=== PATIENT | male | born 1940 | race Caucasian/White ===

== ENCOUNTER → 2017-08-19 14:17 | Outpatient (CLI) | payer MEDICARE, OTHER, SELFPAY ==
--- NOTE | 2017-08-19 14:12 | EKG12_ITS ---
Test Reason : QT EVAL Blood Pressure : / mmHG Vent. Rate : 084 BPM Atrial Rate : 084 BPM P-R Int : 172 ms QRS Dur : 118 ms QT Int : 394 ms P-R-T Axes : 071 -13 016 degrees QTc Int : 465 ms Sinus rhythm with occasional Premature ventricular complexes and Premature atrial complexes Right bundle branch block Inferior infarct , age undetermined Abnormal ECG Confirmed by TABATHA PARADA, ROMA ([id number]), editor in chief JAVON BARNES ([id number] on 08/24/2017 3:18:19 PM Referred By: Kelly Kwong Confirmed By:ROMA MAYS MD
== END ==
PROVIDERS: Family Provider Family Medicine; PCP Family Medicine; Visit Provider Nurse Practitioner Acute Care
DX: I47.1 Supraventricular tachycardia (principal)
CPT/HCPCS: 93005

== ENCOUNTER → 2017-08-29 10:12 | Outpatient (CLI) | payer MEDICARE, OTHER, SELFPAY ==
[2017-08-29 12:18] LABS: Absolute Lymphocyte Count 1.71 X10^3/ul (0.83-4.51); Absolute Neutrophil Count 3.9 X10^3/uL (2.0-7.7); Basophil# 0.01 X10^3/uL; Basophil% 0.2 % (0-1); Eosinophil# 0.12 X10^3/uL; Eosinophils% 1.9 % (0-5); Hematocrit 46.6 % (40-54); Hemoglobin 15.4 g/dl (13.0-16.5); Lymphocyte # 1.71 X10^3/ul (4.0); Lymphocyte % 27.5 % (19-41); Mean Corpuscular Hgb 31.7 pg (27.0-32.0); Mean Corpuscular Volume 95.9 fL (80-94); Mean Platelet Vol. 9.7 fl (6.2-12.0); Monocyte# 0.47 X10^3/uL; Monocyte% 7.6 % (0-10); Neutrophil # 3.87 X10^3/uL (2.7-7.7); Neutrophil % 62.3 % (47-70); Platelet Count 131 K/mm3 (150-450); RBC Distribution Width CV 12.8 % (11.6-14.6); RBC Distribution Width SD 44.2 fl (35.1-43.9); Red Blood Count 4.86 M/mm3 (4.6-6.2); White Blood Count 6.2 K/mm3 (4.4-11.0)
[2017-08-29 12:20] LABS: POSITIVE COUNT NO; POSITIVE DIFFERENTIAL NO; POSITIVE MORPHOLOGY NO
[2017-08-29 12:37] LABS: AST(SGOT) 26 U/L (15-37); Alanine Aminotransfer ALT/SGPT 32 U/L (16-61); Albumin, Serum 3.5 g/dL (3.2-5.0); Alkaline Phosphatase 90 U/L (45-117); Anion Gap 10 (5-15); BUN 18 mg/dL (7-18); BUN/Creat Ratio 17.3 RATIO (10-20); Calcium,Total 8.6 mg/dL (8.5-10.1); Chloride 103 mmol/L (98-107); Creatinine, Serum 1.04 mg/dL (0.70-1.30); EST Glomerular Filtration Rate 74 mL/min (>60); Est Glom Filt Rate - Afr Amer 89 mL/min (>60); Ferritin 57 ng/mL (26-388); Globulin 3.6 g/dL (2.2-4.2); Glucose 126 mg/dL (74-106); Iron 88 ug/dL (65-175); Potassium 3.8 mmol/L (3.5-5.1); Protein, Total 7.1 g/dL (6.4-8.2); Sodium Level 144 mmol/L (136-145); T4 Free Direct 1.04 ng/dL (0.76-1.46); Thyroid Stim Hormone (TSH) 1.61 uIU/mL (0.358-3.74)
== END ==
PROVIDERS: Visit Provider Family Medicine
DX: R73.01 Impaired fasting glucose (principal); I10 Essential (primary) hypertension; D47.3 Essential (hemorrhagic) thrombocythemia; D64.9 Anemia, unspecified
CPT/HCPCS: 36415; 80053; 82728; 83540; 84439; 84443; 85025

== ENCOUNTER → 2018-04-18 09:45 | Outpatient (CLI) | payer MEDICARE, OTHER, SELFPAY ==
[2018-01-24 08:32] VITALS: BMI 27.9
--- NOTE | 2018-04-18 14:19 | PFT ---
INTRODUCTION: The patient is a 77-year-old male that presents for pulmonary function studies secondary to a diagnosis of COPD. Respiratory therapy reports good patient effort. Bronchodilators were used during testing. INTERPRETATION: Forced expiration spirometry demonstrates the presence of a moderately severe large airways obstructive ventilatory defect. There was a significant response to aerosolized bronchodilators noted. Spirograms are of good quality and do not plateau indicating slow emptying of the lungs. Body plethysmography was performed and reveals an elevated RV to 144% of predicted, indicative of underlying air trapping. Diffusing capacity by single breath CO remains within normal limits at 82% of predicted. When compared to previous pulmonary function studies dated March 2017 there has been a significant increase in the patient's residual volume. IMPRESSION: These pulmonary function studies demonstrate the presence of a partially reversible moderately severe large airways obstructive ventilatory defect with associated air trapping. Diffusing capacity remains within normal limits. There have been changes since March 2017 as noted above.
--- NOTE | 2018-04-18 14:22 | PFT_ITS ---
INTRODUCTION: The patient is a 77-year-old male that presents for pulmonary function studies secondary to a diagnosis of COPD. Respiratory therapy reports good patient effort. Bronchodilators were used during testing. INTERPRETATION: Forced expiration spirometry demonstrates the presence of a moderately severe large airways obstructive ventilatory defect. There was a significant response to aerosolized bronchodilators noted. Spirograms are of good quality and do not plateau indicating slow emptying of the lungs. Body plethysmography was performed and reveals an elevated RV to 144% of predicted, indicative of underlying air trapping. Diffusing capacity by single breath CO remains within normal limits at 82% of predicted. When compared to previous pulmonary function studies dated March 2017 there has been a significant increase in the patient's residual volume. IMPRESSION: These pulmonary function studies demonstrate the presence of a partially revers ible moderately severe large airways obstructive ventilatory defect with associated air trapping. Diffusing capacity remains within normal limits. There have been changes since March 2017 as noted above.
== END ==
PROVIDERS: Family Provider Family Medicine; PCP Family Medicine; Referring Provider Nurse Practitioner Acute Care; Visit Provider Nurse Practitioner Acute Care
DX: J44.9 Chronic obstructive pulmonary disease, unspecified (principal)
CPT/HCPCS: 94060; 94726; 94729

== ENCOUNTER → 2018-04-19 10:47 | Outpatient (CLI) | payer MEDICARE, OTHER, SELFPAY ==
[2018-01-24 08:32] VITALS: BMI 27.9
[2018-04-19 12:52] VITALS: PULSE 106; PULSE 110; PULSE 111; PULSE 116; PULSE 117; PULSE 90; PULSE 94; O2SAT 90; O2SAT 91; O2SAT 92; O2SAT 94; O2SAT 96; O2SAT 97
--- NOTE | 2018-04-20 10:51 | PCM.PSN.6M ---
PSN 6 Minute Walk Test - 6 Minute Walk Test 6 Minute Walk Test: 6 Minute Walk Test PSN:6-Minute Walk Test Start: 04/19/18 12:52 Freq: Status: Active Protocol: RESP.6MINW Document 04/19/18 12:52 STEW (Rec: 04/19/18 12:55 STEW [id number]) 6 Minute Walk Test Date Performed 04/19/18 Time Performed 11:00 Height 5 ft 6 in Weight: 175 lb Weight in Pounds 175.[address]: [facility] [place] Assistive device used: None Pre-test Oxygen Delivery Method Room Air Pulse Ox (%) 96 Pulse Rate (60-100 beats/min) 90 Dyspnea Suzette Scale (0-10) 0 Exertion Suzette Scale (6-20) 6 1st minute Oxygen Delivery Method Room Air Pulse Ox (%) 94 Pulse Rate (60-100 beats/min) 106 H 2nd minute Oxygen Delivery Method Room Air Pulse Ox (%) 92 Pulse Rate (60-100 beats/min) 110 H 3rd minute Oxygen Delivery Method Room Air Pulse Ox (%) 92 Pulse Rate (60-100 beats/min) 111 H 4th minute Oxygen Delivery Method Room Air Pulse Ox (%) 91 Pulse Rate (60-100 beats/min) 110 H 5th minute Oxygen Delivery Method Room Air Pulse Ox (%) 90 Pulse Rate (60-100 beats/min) 116 H 6th minute Oxygen Delivery Method Room Air Pulse Ox (%) 92 Pulse Rate (60-100 beats/min) 117 H Dyspnea Suzette Scale (0-10) 3 Exertion Suzette Scale (6-20) 13 Post-test Oxygen Delivery Method Room Air Pulse Ox (%) 97 Pulse Rate (60-100 beats/min) 94 Full Laps Walked 17 Partial Lap, Number of Tiles Walked 15 Total Distance Walked (ft) 1018 - Interpretation Interpretation: The patient ambulated 1018 feet over the course of 6 minutes beginning on room air without assistive devices or breaks. Pretesting oxygen saturation was noted to be 96% on room air. With ambulation, the [place] oxygen saturation was 90%. This represents a significant exertional oxygen desaturation, consistent with a pulmonary limitation to exercise tolerance. - Recommendations Recommendations: There is no indication for the use of supplemental oxygen at this time. However, close interval follow-up is recommended, given the degree of oxygen desaturation noted during this study.
== END ==
PROVIDERS: Family Provider Family Medicine; PCP Family Medicine; Referring Provider Nurse Practitioner Acute Care; Visit Provider Nurse Practitioner Acute Care
DX: J44.9 Chronic obstructive pulmonary disease, unspecified (principal)
CPT/HCPCS: 94618

== ENCOUNTER → 2018-08-29 14:15 | Outpatient (CLI) | payer MEDICARE, OTHER, SELFPAY ==
[2018-05-01 13:20] VITALS: BMI 27.9
[2018-08-29 17:21] LABS: Absolute Lymphocyte Count 1.38 X10^3/ul (0.83-4.51); Absolute Neutrophil Count 3.2 X10^3/uL (2.0-7.7); Basophil# 0.01 X10^3/uL; Basophil% 0.2 % (0-1); Eosinophil# 0.05 X10^3/uL; Hemoglobin 15.7 g/dl (13.0-16.5); Lymphocyte # 1.38 X10^3/ul (4.0); Lymphocyte % 27.8 % (19-41); Mean Corp Hgb Conc 34.1 g/gl (32-36); Mean Corpuscular Volume 93.7 fL (80-94); Mean Platelet Vol. 9.7 fl (6.2-12.0); Monocyte# 0.33 X10^3/uL; Monocyte% 6.7 % (0-10); Neutrophil # 3.17 X10^3/uL (2.7-7.7); Neutrophil % 63.9 % (47-70); Platelet Count 125 K/mm3 (150-450); RBC Distribution Width CV 12.3 % (11.6-14.6); RBC Distribution Width SD 41.3 fl (35.1-43.9); Red Blood Count 4.91 M/mm3 (4.6-6.2)
[2018-08-29 17:30] LABS: POSITIVE COUNT NO; POSITIVE DIFFERENTIAL NO; POSITIVE MORPHOLOGY NO
[2018-08-29 17:59] LABS: AST(SGOT) 21 U/L (15-37); Alanine Aminotransfer ALT/SGPT 26 U/L (16-61); Albumin, Serum 3.5 g/dL (3.2-5.0); Alkaline Phosphatase 88 U/L (45-117); Anion Gap 9 (5-15); BUN 15 mg/dL (7-18); BUN/Creat Ratio 15.7 RATIO (10-20); Calcium,Total 8.5 mg/dL (8.5-10.1); Chloride 104 mmol/L (98-107); Creatinine, Serum 0.96 mg/dL (0.70-1.30); EST Glomerular Filtration Rate 81 mL/min (>60); Est Glom Filt Rate - Afr Amer 98 mL/min (>60); Globulin 3.4 g/dL (2.2-4.2); Glucose 125 mg/dL (74-106); Potassium 3.6 mmol/L (3.5-5.1); Protein, Total 6.9 g/dL (6.4-8.2); Sodium Level 142 mmol/L (136-145); Thyroid Stim Hormone (TSH) 0.72 uIU/mL (0.358-3.74)
== END ==
PROVIDERS: Family Provider Family Medicine; PCP Family Medicine; Visit Provider Family Medicine
DX: I10 Essential (primary) hypertension (principal); D47.3 Essential (hemorrhagic) thrombocythemia; G25.0 Essential tremor; I47.1 Supraventricular tachycardia
CPT/HCPCS: 36415; 80053; 83735; 84443; 85025

== ENCOUNTER → 2019-03-12 09:24 | Outpatient (CLI) | payer MEDICARE, OTHER, SELFPAY ==
[2018-12-28 09:42] VITALS: BMI 28.0
[2019-03-12 12:23] LABS: Absolute Lymphocyte Count 1.41 X10^3/uL (0.83-4.51); Absolute Neutrophil Count 2.1 X10^3/uL (2.0-7.7); Basophil# 0.03 X10^3/uL; Basophil% 0.7 % (0-1); Eosinophil# 0.13 X10^3/uL; Eosinophils% 3.2 % (0-5); Hematocrit 47.8 % (40-54); Hemoglobin 15.7 g/dL (13.0-16.5); Lymphocyte # 1.41 X10^3/ul (4.0); Lymphocyte % 34.6 % (19-41); Mean Corp Hgb Conc 32.8 g/dL (32-36); Mean Corpuscular Hgb 31.3 pg (27.0-32.0); Mean Corpuscular Volume 95.2 fL (80-94); Mean Platelet Vol. 9.8 fl (6.2-12.0); Monocyte# 0.37 X10^3/uL; Monocyte% 9.1 % (0-10); NRBC Flagged by Analyzer 0 % (0-5); Neutrophil # 2.11 X10^3/uL (2.7-7.7); Neutrophil % 51.9 % (47-70); Platelet Count 138 K/mm3 (150-450); RBC Distribution Width SD 41.8 fl (35.1-43.9); Red Blood Count 5.02 M/mm3 (4.6-6.2); White Blood Count 4.1 K/mm3 (4.4-11.0)
[2019-03-12 12:42] LABS: Anion Gap 3 (5-15); BUN 14 mg/dL (7-18); BUN/Creat Ratio 14.6 RATIO (10-20); Calcium,Total 8.4 mg/dL (8.5-10.1); Chloride 102 mmol/L (98-107); Creatinine, Serum 0.96 mg/dL (0.70-1.30); EST Glomerular Filtration Rate 80 mL/min (>60); Est Glom Filt Rate - Afr Amer 97 mL/min (>60); Glucose 115 mg/dL (74-106); Magnesium 1.9 mg/dL (1.6-2.6); Potassium 3.8 mmol/L (3.5-5.1); Sodium Level 138 mmol/L (136-145)
== END ==
PROVIDERS: Family Provider Family Medicine; PCP Family Medicine; Visit Provider Family Medicine
DX: I10 Essential (primary) hypertension (principal); D47.3 Essential (hemorrhagic) thrombocythemia; R25.2 Cramp and spasm
CPT/HCPCS: 36415; 80048; 83735; 85025

== ENCOUNTER → 2019-04-09 07:36 | Outpatient (CLI) | payer MEDICARE, OTHER, SELFPAY ==
[2018-10-23 08:34] VITALS: BMI 28.1
[2018-12-28 09:42] VITALS: BMI 28.0
--- NOTE | 2019-04-09 14:09 | PFTCOMP_ITS ---
COMPLETE PULMONARY FUNCTION TEST INTERPRETATION Brief HPI: Patient is a 78 year old male, currently under the care of myself, who presents to [facility] for complete pulmonary function tests secondary to diagnosis of COPD. Respiratory therapist reports good effort and reproducible results. Interpretation: Forced expiration spirometry shows a moderate large airways obstructive ventilatory defect with an FEV1 of 62% predicted. There is no significant bronchodilator response by strict ATS criteria. Spirograms are of good quality and plateau slowly, indicating slowly emptying areas of the lungs. The respiratory flow volume loop shows decreased expiratory flow rates at all lung volumes consistent with airway obstruction. Lung volumes by body plethysmography show an elevated total lung capacity at 7.65 L, 141% predicted. FRC and RV are elevated out of proportion. Lung volume measurements are consistent with hyperinflation and air-trapping. Diffusion capacity by carbon monoxide is normal at 77% predicted. The airway resistance is normal. Compared to previous pulmonary function tests from 04/18/2018, there is been some improvement in FEV1 by 12%, but also significant worsening in air trapping with hyperinflation. Impression: Irreversible moderate large airways obstructive ventilatory defect with some changes compared to previous testing
== END ==
PROVIDERS: Family Provider Family Medicine; PCP Family Medicine; Referring Provider Nurse Practitioner Acute Care; Visit Provider Nurse Practitioner Acute Care
DX: J44.9 Chronic obstructive pulmonary disease, unspecified (principal)
CPT/HCPCS: 94060; 94726; 94729

== ENCOUNTER → 2019-08-15 09:19 | Outpatient (CLI) | payer MEDICARE, OTHER, SELFPAY ==
[2019-08-07 09:18] VITALS: BMI 26.9
[2019-08-15 10:58] LABS: AST(SGOT) 22 U/L (15-37); Alanine Aminotransfer ALT/SGPT 27 U/L (16-61); Albumin, Serum 3.4 g/dL (3.2-5.0); Alkaline Phosphatase 97 U/L (45-117); Bilirubin, Direct 0.17 mg/dL (0.00-0.30); Cholesterol 144 mg/dL (200); Globulin 3.6 g/dL (2.2-4.2); High Density Lipoprotein 48 mg/dL; Triglycerides 118 mg/dL; Very Low Density Lipoprotein 24 mg/dL (5-40)
== END ==
PROVIDERS: PCP Family Medicine; Referring Provider Internal Medicine Cardiovascular Disease; Visit Provider Internal Medicine Cardiovascular Disease
DX: E78.5 Hyperlipidemia, unspecified (principal); R07.89 Other chest pain
CPT/HCPCS: 36415; 80061; 80076

== ENCOUNTER → 2019-08-20 10:14 | Outpatient (CLI) | payer MEDICARE, OTHER, SELFPAY ==
[2019-08-07 09:18] VITALS: BMI 26.9
--- NOTE | 2019-08-20 10:15 | STEWCON_ITS ---
Reason For Study: Dyspnea On Exertion Stress Results Protocol: [facility] Protocol WITH DEFINITY Maximum Predicted HR: 141 bpm Target HR: 120 bpm % Maximum Predicted HR: 94 % DurationHeart Rate Stage (mm:ss) (bpm) BP Comment Baseline 75 112/70No Chest Pain; 6 ML Diluted Definity [facility] Protocol Stage I 3:00 123 132/68No Chest Pain; Mod Dyspnea River Protocol Stage II 1:30 133 146/70No Chest Pain; Mod Dyspnea; Knee Pain Recovery 88 114/68No Chest Pain; No Dyspnea Stress Duration: 4:30 mm:ss Maximum Stress HR: 133 bpm METS: 7 Baseline Echocardiogram Findings Stress Echo Wall motion Data Resting WM Intermediate WM Stress WM Interpretation Summary Exercise stress echo with and without Definity enhancement. 78-year-old man with a history of coronary artery disease, previous angioplasty and stenting. Stress protocol: Resting EKG demonstrates normal sinus rhythm with a rate of 78 bpm normal intervals are noted right bundle branch block is present blood pressure 112/70 mmHg. The patient exercised according to the regular River protocol for total duration of 4 minutes and 30 seconds maximum heart rate attained was 1 and 34 bpm which was 95% of maximum practice heart rate the maximum workload was 7 metabolic equivalents. Patient maintained sinus rhythm with a right bundle branch block pattern. Occasional premature ventricular complexes were noted there was one episode of ventricular couplet activity noted. These were asymptomatic. The peak blood pressure was 146/70 mmHg. At rest and during exercise there were no ST or T wave changes noted to suggest ischemia the test was terminated due to target heart rate attainment. Stress echocardiogram. Stress and resting echocardiographic images were obtained. The resting echocardiogram performed with Definity enhancement demonstrated an ejection fraction of approximately 55%. At peak exercise there was thickening of all [place] reduction of the ventricular cavity size and peaking of ejection fraction of 65%. No obvious wall motion abnormalities were noted. Conclusion: Normal exercise stress echo with Definity enhancement at a moderate workload. No clinical angina noted. Occasional premature ventricular complexes present. Ordering Physician: Loi Davis Referring Physician: Rian Ash Performed By: Shantanu Conklin RCS
== END ==
PROVIDERS: PCP Family Medicine; Referring Provider Internal Medicine Cardiovascular Disease; Visit Provider Internal Medicine Cardiovascular Disease
DX: R06.02 Shortness of breath (principal)
CPT/HCPCS: 93017; 93350; Q9957; A4216; C8928

== ENCOUNTER → 2019-12-19 08:37 | Outpatient (CLI) | payer MEDICARE, OTHER, SELFPAY ==
[2019-10-17 10:09] VITALS: BMI 27.2
[2019-12-19 10:10] LABS: Absolute Lymphocyte Count 1.35 X10^3/uL (0.83-4.51); Absolute Neutrophil Count 2.8 X10^3/uL (2.0-7.7); Basophil# 0.02 X10^3/uL; Basophil% 0.4 % (0-1); Eosinophil# 0.15 X10^3/uL; Eosinophils% 3.2 % (0-5); Hematocrit 50.1 % (40-54); Hemoglobin 16.4 g/dL (13.0-16.5); Lymphocyte # 1.35 X10^3/ul (4.0); Lymphocyte % 28.5 % (19-41); Mean Corp Hgb Conc 32.7 g/dL (32-36); Mean Corpuscular Hgb 32.5 pg (27.0-32.0); Mean Corpuscular Volume 99.2 fL (80-94); Mean Platelet Vol. 9.6 fl (6.2-12.0); Monocyte# 0.42 X10^3/uL; Monocyte% 8.9 % (0-10); NRBC Flagged by Analyzer 0 % (0-5); Neutrophil # 2.77 X10^3/uL (2.7-7.7); Neutrophil % 58.6 % (47-70); Platelet Count 134 K/mm3 (150-450); RBC Distribution Width CV 12.1 % (11.6-14.6); RBC Distribution Width SD 44.3 fl (35.1-43.9); Red Blood Count 5.05 M/mm3 (4.6-6.2); White Blood Count 4.7 K/mm3 (4.4-11.0)
[2019-12-19 11:13] LABS: Anion Gap 2 (5-15); BUN 16 mg/dL (7-18); BUN/Creat Ratio 18.7 RATIO (10-20); Calcium,Total 8.6 mg/dL (8.5-10.1); Chloride 101 mmol/L (98-107); Creatinine, Serum 0.86 mg/dL (0.70-1.30); EST Glomerular Filtration Rate 91 mL/min (>60); Est Glom Filt Rate - Afr Amer 111 mL/min (>60); Glucose 105 mg/dL (74-106); Potassium 3.9 mmol/L (3.5-5.1); Sodium Level 138 mmol/L (136-145)
== END ==
PROVIDERS: PCP Family Medicine; Referring Provider Family Medicine; Visit Provider Family Medicine
DX: I10 Essential (primary) hypertension (principal); D47.3 Essential (hemorrhagic) thrombocythemia
CPT/HCPCS: 36415; 80048; 85025

== ENCOUNTER → 2020-02-14 08:19 | Outpatient (CLI) | payer MEDICARE, OTHER, SELFPAY ==
[2019-10-17 10:09] VITALS: BMI 27.2
[2020-02-14 09:27] LABS: AST(SGOT) 18 U/L (15-37); Alanine Aminotransfer ALT/SGPT 28 U/L (16-61); Albumin, Serum 3.6 g/dL (3.2-5.0); Alkaline Phosphatase 80 U/L (45-117); Bilirubin, Direct 0.17 mg/dL (0.00-0.30); Cholesterol 148 mg/dL (200); Globulin 3.4 g/dL (2.2-4.2); High Density Lipoprotein 52 mg/dL; Triglycerides 101 mg/dL; Very Low Density Lipoprotein 20 mg/dL (5-40)
== END ==
PROVIDERS: PCP Family Medicine; Referring Provider Internal Medicine Cardiovascular Disease; Visit Provider Internal Medicine Cardiovascular Disease
DX: E78.00 Pure hypercholesterolemia, unspecified (principal)
CPT/HCPCS: 36415; 80061; 80076

== ENCOUNTER → 2020-04-08 09:45 | Outpatient (CLI) | payer MEDICARE, OTHER, SELFPAY ==
[2019-10-17 10:09] VITALS: BMI 27.2
--- NOTE | 2020-04-09 05:50 | PFTCOMP_ITS ---
COMPLETE PULMONARY FUNCTION TEST INTERPRETATION Brief HPI: Patient is an 79 year old male, currently under the care of [my self Dr. Flores], who presents to [facility] for complete pulmonary function tests secondary to diagnosis of COPD. Respiratory therapist reports good effort and reproducible results. Interpretation: Forced expiration spirometry shows a moderately severe large airways obstructive ventilatory defect with an FEV1 of 58% predicted. There is no significant br onchodilator response by strict ATS criteria. Spirograms are of good quality and plateau [slowly, indicating slowly emptying areas of the lungs]. The respiratory flow volume loop shows [decreased expiratory flow rates at all lung volumes consistent with airway obstruction]. Lung volumes by body plethysmography show an elevated total lung capacity at 6.65 L, 129% predicted. [FRC and RV are elevated out of proportion.] Lung volume measurements are consistent with [hyperinflation and] air-trapping. Diffusion capacity by carbon monoxide is preserved at 88% predicted. The airway resistance is elevated. [Compared to previous pulmonary function tests from] 04/09/2019, there is been a significant reduction in FEV1 by 21%. Impression: Irreversible moderately severe large airways obstructive ventilatory defect resulting in air trapping with hyperinflation, with worsening over the last year.
== END ==
PROVIDERS: PCP Family Medicine; Referring Provider Nurse Practitioner Acute Care; Visit Provider Nurse Practitioner Acute Care
DX: J44.9 Chronic obstructive pulmonary disease, unspecified (principal)
CPT/HCPCS: 94060; 94726; 94729

== ENCOUNTER → 2020-04-10 12:18 | Outpatient (CLI) | payer MEDICARE, OTHER, SELFPAY ==
[2019-10-17 10:09] VITALS: BMI 27.2
[2020-04-10 12:00] VITALS: PULSE 102; PULSE 103; PULSE 105; PULSE 109; PULSE 110; PULSE 113; PULSE 90; O2SAT 91; O2SAT 92; O2SAT 94; O2SAT 96; O2SAT 99
--- NOTE | 2020-04-10 14:43 | PCM.PSN.6M ---
PSN 6 Minute Walk Test - 6 Minute Walk Test 6 Minute Walk Test: 6 Minute Walk Test PSN:6-Minute Walk Test Start: 04/10/20 12:36 Freq: Status: Active Protocol: RESP.6MINW Document 04/10/20 12:00 (Rec: 04/10/20 12:39 [id number]) 6 Minute Walk Test Date Performed 04/10/20 Time Performed 12:30 Height 5 ft 5 in Weight: 70.307 kg Weight in Pounds 155.[address]: Kelly Kwong MATERIALS MANAGEMENT CLERK FIO2 (% Oxygen) 21 Assistive device used: None Pre-test Oxygen Delivery Method Room Air Pulse Ox (%) 99 Pulse Rate (60-100 beats/min) 90 Dyspnea Suzette Scale (0-10) 0 Exertion Suzette Scale (6-20) 6 1st minute Oxygen Delivery Method Room Air Pulse Ox (%) 94 Pulse Rate (60-100 beats/min) 102 H 2nd minute Oxygen Delivery Method Room Air Pulse Ox (%) 92 Pulse Rate (60-100 beats/min) 105 H 3rd minute Oxygen Delivery Method Room Air Pulse Ox (%) 94 Pulse Rate (60-100 beats/min) 113 H Number of Rests Taken 1 4th minute Oxygen Delivery Method Room Air Pulse Ox (%) 91 Pulse Rate (60-100 beats/min) 109 H 5th minute Oxygen Delivery Method Room Air Pulse Ox (%) 94 Pulse Rate (60-100 beats/min) 110 H 6th minute Oxygen Delivery Method Room Air Pulse Ox (%) 92 Pulse Rate (60-100 beats/min) 103 H Post-test Oxygen Delivery Method Room Air Pulse Ox (%) 96 Pulse Rate (60-100 beats/min) 102 H Dyspnea Suzette Scale (0-10) 1 Exertion Suzette Scale (6-20) 13 Full Laps Walked 14 Partial Lap, Number of Tiles Walked 54 Total Distance Walked (ft) 880 - Interpretation Interpretation: The patient was able to ambulate 880 feet over the course of 6 minutes on room air with no assistive devices and one break. The patient did have significant desaturation from a baseline of 99% to as low as 91%. Patient also had an element of tachycardia 113 bpm. These findings are consistent with a respiratory limitation exercise tolerance. - Recommendations Recommendations: The patient requires no supplemental oxygen at this time. However, patient will need to be followed closely given level of desaturation.
== END ==
PROVIDERS: PCP Family Medicine; Referring Provider Nurse Practitioner Acute Care; Visit Provider Nurse Practitioner Acute Care
DX: J44.9 Chronic obstructive pulmonary disease, unspecified (principal)
CPT/HCPCS: 94618

== ENCOUNTER → 2020-08-15 08:11 | Outpatient (CLI) | payer MEDICARE, OTHER, SELFPAY ==
[2020-05-08 13:01] VITALS: BMI 25.4
[2020-08-15 09:39] LABS: Absolute Lymphocyte Count 1.77 X10^3/uL (0.83-4.51); Absolute Neutrophil Count 3.3 X10^3/uL (2.0-7.7); Basophil# 0.03 X10^3/uL; Basophil% 0.5 % (0-1); Eosinophil# 0.18 X10^3/uL; Eosinophils% 3.2 % (0-5); Hematocrit 49.7 % (40-54); Hemoglobin 16.2 g/dL (13.0-16.5); Lymphocyte # 1.77 X10^3/ul (0.83-4.51); Lymphocyte % 31.2 % (19-41); Mean Corp Hgb Conc 32.6 g/dL (32-36); Mean Corpuscular Hgb 32.6 pg (27.0-32.0); Mean Platelet Vol. 9.6 fl (6.2-12.0); Monocyte# 0.41 X10^3/uL; Monocyte% 7.2 % (0-10); NRBC Flagged by Analyzer 0 % (0-5); Neutrophil # 3.26 X10^3/uL (2.7-7.7); Neutrophil % 57.5 % (47-70); Platelet Count 129 K/mm3 (150-450); RBC Distribution Width CV 11.9 % (11.6-14.6); Red Blood Count 4.97 M/mm3 (4.6-6.2); White Blood Count 5.7 K/mm3 (4.4-11.0)
[2020-08-15 10:02] LABS: Hemoglobin A1c 6.1 % (3.8-5.6)
[2020-08-15 10:22] LABS: AST(SGOT) 21 U/L (15-37); Alanine Aminotransfer ALT/SGPT 23 U/L (16-61); Albumin, Serum 3.4 g/dL (3.2-5.0); Alkaline Phosphatase 101 U/L (45-117); Anion Gap 5 (5-15); BUN 17 mg/dL (7-18); BUN/Creat Ratio 19.7 RATIO (10-20); Bilirubin, Direct 0.14 mg/dL (0.00-0.30); Calcium,Total 8.6 mg/dL (8.5-10.1); Chloride 103 mmol/L (98-107); Cholesterol 132 mg/dL (200); Creatinine, Serum 0.86 mg/dL (0.70-1.30); EST Glomerular Filtration Rate 90 mL/min (>60); Est Glom Filt Rate - Afr Amer 109 mL/min (>60); Globulin 3.5 g/dL (2.2-4.2); Glucose 109 mg/dL (74-106); High Density Lipoprotein 46 mg/dL; Protein, Total 6.9 g/dL (6.4-8.2); Sodium Level 142 mmol/L (136-145); Thyroid Stim Hormone (TSH) 1.53 uIU/mL (0.358-3.74); Triglycerides 121 mg/dL; Very Low Density Lipoprotein 24 mg/dL (5-40)
== END ==
PROVIDERS: PCP Family Medicine; Referring Provider Internal Medicine Cardiovascular Disease; Visit Provider Internal Medicine Cardiovascular Disease
DX: R73.01 Impaired fasting glucose (principal); D47.3 Essential (hemorrhagic) thrombocythemia; I10 Essential (primary) hypertension; E78.5 Hyperlipidemia, unspecified
CPT/HCPCS: 36415; 80048; 80061; 80076; 83036; 84443; 85025

== ENCOUNTER 2021-03-30 11:54 | Outpatient (CLI) | payer MEDICARE, OTHER, SELFPAY | END 2021-03-30 23:59 | disposition short-term general hospital (02) | LOC: LABSPEC 11:56 | PROVIDERS: PCP Family Medicine; Visit Provider Family Medicine | DX: U07.1 COVID-19 (principal) | CPT/HCPCS: 87635; U0003 ==

== ENCOUNTER → 2021-10-06 | Outpatient (CLI) | payer MEDICARE, OTHER, SELFPAY ==
--- NOTE | 2021-10-07 05:37 | PFTCOMP_ITS ---
COMPLETE PULMONARY FUNCTION TEST INTERPRETATION Brief HPI: Patient is an 80-year-old male, currently under the care of myself, who presents to [facility] for complete pulmonary function tests secondary to diagnosis of COPD. Respiratory therapist reports good effort and reproducible results. Interpretation: Forced expiration spirometry shows a moderately severe large airways obstructive ventilatory defect with an FEV1 of 52% predicted. There is a significant bronchodilator response in FVC by strict ATS criteria. Spirograms are of good quality and plateau slowly, indicating slowly emptying areas of the lungs. The respiratory flow volume loop shows decreased expiratory flow rates at all lung volumes consistent with airway obstruction. Lung volumes by body plethysmography show an elevated total lung capacity at 7.82 L, 145% predicted. FRC and RV are elevated out of proportion. Lung volume measurements are consistent with hyperinflation and air-trapping. Diffusion capacity by carbon monoxide is normal at 75% predicted. The airway resistance is elevated. Compared to previous pulmonary function tests from 04/08/2020, there has been some worsening in air trapping with hyperinflation and decreased DLCO. Impression: Partially reversible moderately severe large airways obstructive ventilatory defect resulting in air trapping with hyperinflation. There has been some worsening compared to previous study
== END | disposition home or self-care (01) ==
LOC: PSN 09:18
PROVIDERS: PCP Family Medicine; Referring Provider Internal Medicine Critical Care Medicine; Visit Provider Internal Medicine Critical Care Medicine
DX: J44.9 Chronic obstructive pulmonary disease, unspecified (principal)
CPT/HCPCS: 94060; 94726; 94729

== ENCOUNTER → 2021-10-08 | Outpatient (CLI) | payer MEDICARE, OTHER, SELFPAY ==
[2021-10-08 11:28] VITALS: PULSE 102; PULSE 104; PULSE 105; PULSE 70; PULSE 81; PULSE 88; PULSE 99; O2SAT 92; O2SAT 93; O2SAT 95; O2SAT 96
--- NOTE | 2021-10-09 05:47 | PCM.PSN.6M ---
PSN 6 Minute Walk Test 6 Minute Walk Test 6 Minute Walk Test: 6 Minute Walk Test PSN:6-Minute Walk Test Start: 10/08/21 11:28 Freq: Status: Active Protocol: RESP.6MINW Document 10/08/21 11:28 STEW (Rec: 10/08/21 11:30 STEW [id number]) 6 Minute Walk Test Date Performed 10/08/21 Time Performed 11:15 Height 5 ft 6 in Weight: 66.678 kg Weight in Pounds 147.[address]: River [place] Assistive device used: None Pre-test Oxygen Delivery Method Room Air Pulse Ox (%) 95 Pulse Rate (60-100 beats/min) 81 Dyspnea Suzette Scale (0-10) 0 Exertion Suzette Scale (6-20) 6 1st minute Oxygen Delivery Method Room Air Pulse Ox (%) 95 Pulse Rate (60-100 beats/min) 88 2nd minute Oxygen Delivery Method Room Air Pulse Ox (%) 93 Pulse Rate (60-100 beats/min) 99 3rd minute Oxygen Delivery Method Room Air Pulse Ox (%) 93 Pulse Rate (60-100 beats/min) 102 H 4th minute Oxygen Delivery Method Room Air Pulse Ox (%) 92 Pulse Rate (60-100 beats/min) 105 H 5th minute Oxygen Delivery Method Room Air Pulse Ox (%) 92 Pulse Rate (60-100 beats/min) 104 H 6th minute Oxygen Delivery Method Room Air Pulse Ox (%) 92 Pulse Rate (60-100 beats/min) 105 H Dyspnea Suzette Scale (0-10) 2 Exertion Suzette Scale (6-20) 14 Post-test Oxygen Delivery Method Room Air Pulse Ox (%) 96 Pulse Rate (60-100 beats/min) 70 Full Laps Walked 15 Partial Lap, Number of Tiles Walked 35 Total Distance Walked (ft) 920 Interpretation Interpretation: The patient was able to travel 920 feet over the course of 6 minutes on room air with no assistive devices or breaks. The patient did experience significant desaturation from a baseline of 95% to as low as 92%. This did have some reflexive tachycardia with a peak heart rate of 105 bpm. These findings are consistent with a respiratory limitation exercise tolerance. Recommendations Recommendations: No supplemental oxygen is indicated at this time. However, patient will need to be followed closely given level of desaturation.
== END | disposition home or self-care (01) ==
LOC: PSN 11:01
PROVIDERS: PCP Family Medicine; Referring Provider Internal Medicine Critical Care Medicine; Visit Provider Internal Medicine Critical Care Medicine
DX: J44.9 Chronic obstructive pulmonary disease, unspecified (principal)
CPT/HCPCS: 94618

== ENCOUNTER → 2022-06-21 | Outpatient (CLI) | payer MEDICARE, OTHER, SELFPAY ==
[2022-06-21 12:14] LABS: Absolute Lymphocyte Count 1.19 X10^3/uL (0.83-4.51); Absolute Neutrophil Count 2.3 X10^3/uL (2.0-7.7); Basophil# 0.02 X10^3/uL; Basophil% 0.5 % (0-1); Eosinophil# 0.11 X10^3/uL; Eosinophils% 2.8 % (0-5); Hematocrit 48.5 % (40-54); Hemoglobin 16.3 g/dL (13.0-16.5); Lymphocyte # 1.19 X10^3/ul (0.83-4.51); Lymphocyte % 30.5 % (19-41); Mean Corp Hgb Conc 33.6 g/dL (32-36); Mean Corpuscular Hgb 34.2 pg (27.0-32.0); Mean Corpuscular Volume 101.9 fL (80-94); Mean Platelet Vol. 10.2 fl (6.2-12.0); Monocyte# 0.28 X10^3/uL; Monocyte% 7.2 % (0-10); NRBC Flagged by Analyzer 0 % (0-5); Neutrophil # 2.29 X10^3/uL (2.7-7.7); Neutrophil % 58.7 % (47-70); Platelet Count 125 K/mm3 (150-450); RBC Distribution Width CV 12.1 % (11.6-14.6); RBC Distribution Width SD 45.2 fl (35.1-43.9); Red Blood Count 4.76 M/mm3 (4.6-6.2); White Blood Count 3.9 K/mm3 (4.4-11.0)
[2022-06-21 12:29] LABS: AST(SGOT) 31 U/L (15-37); Alanine Aminotransfer ALT/SGPT 40 U/L (16-61); Albumin, Serum 3.6 g/dL (3.2-5.0); Alkaline Phosphatase 83 U/L (45-117); Anion Gap -1 (5-15); BUN 15 mg/dL (7-18); BUN/Creat Ratio 19.8 RATIO (10-20); Calcium,Total 8.8 mg/dL (8.5-10.1); Chloride 101 mmol/L (98-107); Cholesterol 146 mg/dL (200); Creatinine, Serum 0.76 mg/dL (0.70-1.30); EST Glomerular Filtration Rate 105 mL/min (>60); Est Glom Filt Rate - Afr Amer 127 mL/min (>60); Globulin 3.5 g/dL (2.2-4.2); Glucose 122 mg/dL (74-106); High Density Lipoprotein 65 mg/dL; Potassium 4.2 mmol/L (3.5-5.1); Protein, Total 7.1 g/dL (6.4-8.2); Sodium Level 136 mmol/L (136-145); Triglycerides 108 mg/dL; Very Low Density Lipoprotein 22 mg/dL (5-40)
== END | disposition home or self-care (01) ==
DX: Z00.00 Encounter for general adult medical examination without abnormal findings (principal); I10 Essential (primary) hypertension; I25.10 Atherosclerotic heart disease of native coronary artery without angina pectoris
CPT/HCPCS: 36415; 80053; 80061; 85025

== ENCOUNTER → 2023-06-28 | Outpatient (CLI) | payer OTHER, MEDICARE, SELFPAY ==
[2023-06-28 12:19] LABS: Absolute Lymphocyte Count 0.87 X10^3/uL (0.83-4.51); Absolute Neutrophil Count 2.6 X10^3/uL (2.0-7.7); Basophil# 0.02 X10^3/uL; Basophil% 0.5 % (0-1); Eosinophils% 2.6 % (0-5); Hematocrit 46.7 % (40-54); Lymphocyte # 0.87 X10^3/ul (0.83-4.51); Lymphocyte % 22.4 % (19-41); Mean Corp Hgb Conc 32.1 g/dL (32-36); Mean Corpuscular Volume 102.9 fL (80-94); Mean Platelet Vol. 9.8 fl (6.2-12.0); Monocyte# 0.31 X10^3/uL; NRBC Flagged by Analyzer 0 % (0-5); Neutrophil # 2.58 X10^3/uL (2.7-7.7); Neutrophil % 66.2 % (47-70); Platelet Count 141 K/mm3 (150-450); RBC Distribution Width CV 11.9 % (11.6-14.6); RBC Distribution Width SD 45.1 fl (35.1-43.9); Red Blood Count 4.54 M/mm3 (4.6-6.2); White Blood Count 3.9 K/mm3 (4.4-11.0)
[2023-06-28 12:39] LABS: AST(SGOT) 26 U/L (15-37); Alanine Aminotransfer ALT/SGPT 33 U/L (16-61); Albumin, Serum 3.4 g/dL (3.2-5.0); Alkaline Phosphatase 77 U/L (45-117); Anion Gap 2 (5-15); BUN 13 mg/dL (7-18); BUN/Creat Ratio 18.9 RATIO (10-20); Calcium,Total 8.6 mg/dL (8.5-10.1); Chloride 96 mmol/L (98-107); Cholesterol 139 mg/dL (200); Creatinine, Serum 0.69 mg/dL (0.70-1.30); EST Glomerular Filtration Rate 116 mL/min (>60); Est Glom Filt Rate - Afr Amer 141 mL/min (>60); Globulin 3.5 g/dL (2.2-4.2); Glucose 142 mg/dL (74-106); High Density Lipoprotein 79 mg/dL; PSA,Total - Annual Screen 0.51 ng/mL (0.00-4.00); Protein, Total 6.9 g/dL (6.4-8.2); Sodium Level 137 mmol/L (136-145); Triglycerides 77 mg/dL; Very Low Density Lipoprotein 15 mg/dL (5-40)
== END | disposition home or self-care (01) ==
LOC: BFHLAB 09:55
PROVIDERS: PCP Nurse Practitioner Family; Referring Provider Nurse Practitioner Family; Visit Provider Nurse Practitioner Family
DX: I10 Essential (primary) hypertension (principal); N40.0 Benign prostatic hyperplasia without lower urinary tract symptoms; E78.5 Hyperlipidemia, unspecified; R73.01 Impaired fasting glucose; Z12.5 Encounter for screening for malignant neoplasm of prostate
CPT/HCPCS: 36415; 80053; 80061; 83036; 84153; 85025; G0103

== ENCOUNTER 2023-12-08 09:43 | Day surgery (SDC) | payer MEDICARE, OTHER, SELFPAY ==
--- NOTE | 2023-11-30 08:53 | EKG12_ITS ---
Test Reason : PREOP Blood Pressure : / mmHG Vent. Rate : 080 BPM Atrial Rate : 067 BPM P-R Int : 166 ms QRS Dur : 116 ms QT Int : 418 ms P-R-T Axes : 068 -02 035 degrees QTc Int : 482 ms Sinus rhythm with Premature atrial complexes Low voltage QRS Right bundle branch block Inferior infarct , age undetermined Abnormal ECG Confirmed by Teofilo Anderson ([id number]), medical editor IVANIA WILSON ([id number]) on 12/01/2023 5:51:23 AM Referred By: Bran Joyce Confirmed By:Teofilo Anderson
[2023-11-30 09:27] LABS: Hematocrit 42.5 % (40-54); Mean Corp Hgb Conc 32.9 g/dL (32-36); Mean Corpuscular Hgb 33.7 pg (27.0-32.0); Mean Corpuscular Volume 102.2 fL (80-94); Mean Platelet Vol. 9.8 fl (6.2-12.0); Platelet Count 131 K/mm3 (150-450); RBC Distribution Width CV 12.3 % (11.6-14.6); RBC Distribution Width SD 46.3 fl (35.1-43.9); Red Blood Count 4.16 M/mm3 (4.6-6.2); White Blood Count 4.9 K/mm3 (4.4-11.0)
[2023-11-30 09:53] LABS: Anion Gap 3 (5-15); BUN 15 mg/dL (7-18); BUN/Creat Ratio 17.2 RATIO (10-20); Calcium,Total 9.3 mg/dL (8.5-10.1); Chloride 102 mmol/L (98-107); Creatinine, Serum 0.87 mg/dL (0.70-1.30); EST Glomerular Filtration Rate 89 mL/min (>60); Est Glom Filt Rate - Afr Amer 107 mL/min (>60); Glucose 115 mg/dL (74-106); Potassium 3.8 mmol/L (3.5-5.1); Sodium Level 141 mmol/L (136-145)
[2023-12-08] VITALS (10 sets, daily range): BP systolic 117–160; BP diastolic 56–87; PULSE 62–84; RESP 16–20; TEMP 36.4–37.2; O2SAT 91–100; BMI 22.1
[2023-12-08] MEDS: Ipratropium/Albuterol Sulfate 3 ML AMPUL.NEB INHALATION (10:20)
--- NOTE | 2023-12-08 10:21 | PRE.ANES_ITS ---
ASA Classification* ASA Classification ASA Classification: 3 Assessment & Plan Anesthesia* Anesthesia Assessment Anesthesia Assessment: Discussed sedation and/or anesthesia options, risks, benefits, and alternatives with patient/parents/legal guardian/POA. Questions invited. The patient/parents/legal guardian/POA seems to understand and agrees to proceed with anesthesia plan. Reviewed the physical assessment, medical history, allergy history and patient home medications list prior to surgery/procedure/anesthetic and documented any changes. Performed airway and anesthesia risk assessments. Anesthesia Type Anesthesia Type: General (see written pre anesthesia record for full assessment) Anesthesia Focused Assessment* Airway Assessment Mouth opens: >3 cm Mallampati Score: III Focused Labs Anesthesia Preop lab: CBC WBC 4.9 K/mm3 (4.4-11.0) 11/30/23 09:06 RBC 4.16 M/mm3 (4.6-6.2) L 11/30/23 09:06 Hgb 14.0 g/dL (13.0-16.5) 11/30/23 09:06 Hct 42.5 % (40-54) 11/30/23 09:06 Plt Count 131 K/mm3 (150-450) L 11/30/23 09:06 CHEMISTRY Potassium 3.8 mmol/L (3.5-5.1) 11/30/23 09:06 Sodium 141 mmol/L (136-145) 11/30/23 09:06 Magnesium 1.9 mg/dL (1.6-2.6) 03/12/19 09:28 BUN 15 mg/dL (7-18) 11/30/23 09:06 Creatinine 0.87 mg/dL (0.70-1.30) 11/30/23 09:06 Glucose 115 mg/dL (74-106) H 11/30/23 09:06 TSH 1.53 uIU/mL (0.358-3.74) 08/15/20 08:15 COAG Pre-Assessment Diagnosis/Proposed Procedure Planned Operative Procedure(s): ROBOTIC ASSISTED LEFT INGUINAL HERNIA REPAIR Anesthesia History Anesthesia History - rehab therapist: Anesthesia History - rehab therapist Hx Hospitalization No 11/28/23 10:18 Any Problems With Anesthesia No 11/28/23 10:18 Cholinesterase deficiency No 11/28/23 10:18 You/Your Family Experience No 11/28/23 10:18 fever (hyperthermia) with Relationship Recent Exposure to Contagious Disease Does patient have nerve No 11/28/23 10:18 stimulator Patient instructed to have device shut off --Does patient have Pacemaker or ICD? When Was Last Pacemaker Check QUESTION #4 FULL TEXT: You/Your Family Experience fever (hyperthermia) with Anesthesia Last Oral Intake Last Oral intake: Last Oral Intake NPO since Meds taken in AM with sips of water? Meds patient instructed to take am of surgery PONV PONV - rehab therapist: PONV - rehab therapist Female No 11/28/23 10:18 HX of Motion Sickness No 11/28/23 10:18 HX of N/V After Surgery No 11/28/23 10:18 Non-Smoker Yes 11/28/23 10:18 Duration of Surgery greater Yes 11/28/23 10:18 than 60 minutes Number of Risk Factors 2 11/28/23 10:18 PONV Score Moderate Risk 11/28/23 10:18 Height & Weight Height & Weight: Anesthesia: Height & Weight Height 5 ft 6 in 11/03/23 14:38 Respiratory Assessment Respiratory Assessment - rehab therapist: Respiratory Tract Infection Hx - rehab therapist Hx Respiratory Tract Infection No 11/28/23 10:18 STOP Sleep Apnea STOP Sleep Apnea - rehab therapist: STOP Sleep Apnea - rehab therapist Hx Hypertension No 11/28/23 10:18 Hx Sleep Apnea Yes 11/28/23 10:18 CPAP No 11/28/23 10:18 BIPAP Yes 11/28/23 10:18 Do you snore loudly (louder than talking or can be heard Do you often feel tired/ fatigued/ sleepy during daytime? Has anyone observed you stop breathing during sleep? STOP Results Positive 11/28/23 10:18 QUESTION #5 FULL TEXT : Do you snore loudly (louder than talking or can be heard through closed doors)? Tobacco Use History Tobacco Use History - rehab therapist: Tobacco Use History - rehab therapist Tobacco Use Smoking Status Former smoker 11/28/23 10:18 Hx Tobacco Use Yes 11/28/23 10:18 Years Smoking Packs Smoked per Day Smoking Cessation Date was Yes - quit smoking within 15 11/28/23 10:18 within the last 15 years years Hx Smoking Cessation Date Hx Smoking Cessation Yes 11/28/23 10:18 Counseling Hematologic Medial History Hematologic Hx - rehab therapist: Hematologic Medical Hx - correctional treatment specialist Hx of Blood Transfusion No 11/28/23 10:18 Hx of Transfusion in last 3 No 11/28/23 10:18 Months Date of Last Transfusion (if within last 3 months) Ever experience any problems No 11/28/23 10:18 with transfusion(s)? Specify any problems Hx of Preganancy in last 3 N/A 11/28/23 10:18 Months Nurse Filling Out Transfusion [facility] 11/28/23 10:18 & Questions: Date: 11/28/23 11/28/23 10:18 Time: 10:33 11/28/23 10:18 Patient unable to answer at this time (ie. confused, unrespo /Reproduction History /Reproductive History - rehab therapist: /Reproductive Hx- rehab therapist Hx Now Gestational Age (in weeks): EDC: Hx Hx Para Hx Section SAB Active Medications Active Medications: Current Medications Generic Name Dose Route Start Last Admin Trade Name Freq PRN Reason Stop Dose Admin Cefazolin Sodium 2 gm/ Sodium 110 mls @ 150 mls/hr 12/08/23 11:25 Chloride IV 12/08/23 12:08 PREOP ONE Lactated Ringer's 1,000 mls @ 15 mls/hr 12/08/23 10:15 IV .Q48H VANDANA PFSH Medical History On home oxygen therapy Wears dentures Wears glasses Bruising Arthritis Prostate disease Low iron High cholesterol Excessive bleeding Essential tremor Heartburn BiPAP (biphasic positive airway pressure) dependence Sleep apnea Former smoker Chronic cough COPD (chronic obstructive pulmonary disease) History of heart attack History of echocardiogram History of stress test Cardiology follow-up encounter History of irregular heartbeat Supplemental oxygen dependent Thrombocytopenia Ischemic cardiomyopathy Claustrophobia PFO (patent foramen ovale) 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) Paroxysmal supraventricular tachycardia Atherosclerosis of coronary artery of [place] heart without angina pectoris Essential (primary) hypertension Hyperlipidemia Candidiasis of mouth Tobacco abuse ANGELINA (obstructive sleep apnea) 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 thrombocythemia Knee pain BPH (benign prostatic hyperplasia) GERD (gastroesophageal reflux disease) Anemia Depression Anxiety Hearing loss Gastritis Right bundle branch block Temporomandibular joint disorder COPD exacerbation Hypoxia Home Medications ?Medication ?Instructions ?Recorded ?Last Taken ?Type atorvastatin 80 mg tablet 80 mg PO QHS 03/03/16 03/02/16 History clopidogrel 75 mg tablet 75 mg PO DAILY 03/03/16 03/03/16 History ferrous sulfate 325 mg (65 mg 325 mg PO DAILY 03/03/16 03/02/16 History iron) tablet multivitamin,lx-zbyy-kjunurhe 27 1 tab PO DAILY 03/03/16 03/03/16 History mg-0.4 mg tablet tamsulosin 0.4 mg capsule 0.4 mg PO QHS 03/03/16 03/02/16 History pantoprazole 40 mg tablet,delayed 40 mg PO QHS 08/07/19 Unknown History release folic acid 800 mcg tablet 0.8 mg PO DAILY 08/15/20 Unknown History mecobalamin (vitamin B12) 1,000 1,000 mcg PO DAILY 08/15/20 Unknown History mcg chewable tablet spacer #1 ea 10/29/20 Unknown Rx nitroglycerin 0.4 mg sublingual 0.4 mg sublingual Q5M PRN Chest 05/12/21 Unknown Rx tablet Pain #25 tabs albuterol sulfate 90 mcg/actuation 1 - 2 puff inhalation Q6H PRN PRN 10/27/21 Unknown Rx aerosol inhaler Sob &/Or Wheezing #18 grams primidone 250 mg tablet See Rx Instructions PO BID 07/26/23 Unknown History fluticasone fur. 100 mcg-umeclid 1 inh inhalation DAILY #60 ea 10/12/23 Unknown Rx 62.5 mcg-vilant 25 mcg inhalat.powder (Trelegy Ellipta) melatonin 5 mg capsule 10 mg PO QHS 11/28/23 Unknown History Allergy/AdvReac Type Severity Reaction Status Date / Time metoprolol (From Toprol XL) Allergy Feeling Verified 11/28/23 10:12 faint Family History Mother Heart disease Cardiomegaly Father Heart disease CVA (cerebral vascular accident) Malignant tumor of prostate Surgical History History of radiofrequency ablation procedure for cardiac arrhythmia (03/11/16) History of coronary artery stent placement (07/28/09) History of esophagogastroduodenoscopy (EGD) H/O knee surgery Hx of colonoscopy H/O hernia repair Social History Smoking Status: Former smoker quit date: 07/22/17 pack-years: 59 Tobacco: How many years used: 59 second hand exposure: No quit status: considering quitting alcohol intake: never substance use type: does not use caffeine: Yes Type: coffee Number of servings: 2 Review of Systems (Anesthesia) ROS Narrative System reviewed and no additional complaints, except as documented.
--- NOTE | 2023-12-08 10:25 | HP.PCM_ITS ---
History and Physical Date of Admission: 12/08/23 Intake Vital Signs 07/25/2406:23 11/02/2413:38 Height 5 ft 6 in 5 ft 6 in Weight: 143 lb BMI 23.1 BP 125/65 H Blood Pressure Location Rt brachial Position Sitting Respiration 16 Pulse 70 Pulse Oximetry (%) 96 Oxygen Delivery Method nasal canula Oxygen Flow Rate (L/min) 2 Intake Visit Reasons: INGUINAL HERNIA Chief Complaint: left inguinal hernia Vp Director Of Finance Required: No Is patient in pain?: No Allergies metoprolol (From Toprol XL) Allergy (Verified 11/03/23 14:39) Feeling faint Medications ?Medication ?Instructions ?Recorded ?Confirmed ?Type atorvastatin 80 mg tablet 80 mg PO QHS 03/03/16 11/03/23 History clopidogrel 75 mg tablet 75 mg PO DAILY 03/03/16 11/03/23 History ferrous sulfate 325 mg (65 mg 325 mg PO DAILY 03/03/16 11/03/23 History iron) tablet multivitamin,om-oyji-anhafkcj 27 1 tab PO DAILY 03/03/16 11/03/23 History mg-0.4 mg tablet tamsulosin 0.4 mg capsule 0.4 mg PO QHS 03/03/16 11/03/23 History pantoprazole 40 mg tablet,delayed 40 mg PO QHS 08/07/19 11/03/23 History release folic acid 800 mcg tablet 0.8 mg PO DAILY 08/15/20 11/03/23 History mecobalamin (vitamin B12) 1,000 1,000 mcg PO DAILY 08/15/20 11/03/23 History mcg chewable tablet spacer #1 ea 10/29/20 07/26/23 Rx nitroglycerin 0.4 mg sublingual 0.4 mg sublingual Q5M PRN Chest 05/12/21 11/03/23 Rx tablet Pain #25 tabs albuterol sulfate 90 mcg/actuation 1 - 2 puff inhalation Q6H PRN PRN 10/27/21 11/03/23 Rx aerosol inhaler Sob &/Or Wheezing #18 grams melatonin 3 mg capsule 4.5 mg PO HS 07/26/23 11/03/23 History primidone 250 mg tablet See Rx Instructions PO BID 07/26/23 11/03/23 History fluticasone fur. 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) Paroxysmal supraventricular tachycardia Atherosclerosis of coronary artery of [place] heart without angina pectoris Essential (primary) hypertension Hyperlipidemia Candidiasis of mouth Tobacco abuse ANGELINA (obstructive sleep apnea) 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 thrombocythemia Knee pain BPH (benign prostatic hyperplasia) GERD (gastroesophageal reflux disease) Anemia Depression Anxiety Hearing loss Gastritis Right bundle branch block Temporomandibular joint disorder COPD exacerbation Hypoxia Surgical History History of radiofrequency ablation procedure for cardiac arrhythmia (03/11/16) History of coronary artery stent placement (07/28/09) History of esophagogastroduodenoscopy (EGD) H/O knee surgery Hx of colonoscopy H/O hernia repair Family History Mother Heart disease CardiomegalyFather Heart disease CVA (cerebral vascular accident) Malignant tumor of prostate Social History Smoking Status: Current every day smoker Tobacco: How many years used: 59 second hand exposure: No quit status: considering quitting alcohol intake: never substance use type: does not use caffeine: Yes Type: coffee Number of servings: 2 HPI HPI HPI: Patient is an 82-year-old male who is here for left inguinal hernia. He reports this has been there for about a month. He has had a right inguinal hernia repaired in the past by Dr. Smith in an open fashion. He reports that the left groin is painful that radiates down to the scrotum. ROS General General: Yes fatigue; No weight change, appetite, colon cancer, breast cancer or weakness HEENT HEENT: No difficulty swallowing, eye injury, eye surgery, swollen glands or hoarseness Endo Endocrine: No thyroid disease, diabetes mellitus, thyroid cancer, Hair loss, heat intolerance or cold intolerance Skin Skin: No rash or changing moles Breast Breast: No left breast lump, right breast lump, nipple discharge, breast pain, abnormal mammogram, abnormal US or breast enlargement Musc Musculoskeletal: Yes back problems, arthritis and gout; No rheumatoid arthritis or joint pain Cardio Cardiovascular: Yes heart attack and heart stent; No murmur, pacemaker, heart disease, atrial fibrillation, high blood pressure, palpitations, shortness of breat with exertion or chest pain Psych Psychiatric: No depression, anxiety or hearing voices Resp Respiratory: Yes shortness of breath, No sleep apnea, Yes cough, Yes COPD, No asthma, No emphysema and No wheezing Gastro Gastrointestinal: Yes abdominal pain, No nausea or vomiting, Yes diarrhea, Yes constipation, No blood in stool, Yes acid reflux, No hemorrhoids, No ulcers, No gallbladder problem and No black,tarry stools Kyle Hematologic: Yes blood thinners, No blood disorders, No bleeding, No anemia and No blood clots Neuro Neurologic: No system reviewed and no additional complaints, except as documented, No as per HPI, No abnormal gait, No abnormal hearing, No abnormal movements, No abnormal speech, No behavioral changes, No burning sensations, No confusion, No convulsions, No disequilibrium, No dizziness, No localized weakness, No frequent falls, No headache(s), No lack of coordination, No loss of vision, No memory loss, No numbness, No other visual disturbances, No radicular pain, No restless legs, No sensory deficit, No syncope, No tingling, No tremor(s), No weakness and No other Exam Const General: cooperative Orientation: alert and oriented x3 [facility] Head: normal to inspection Neck Neck: normal visual inspection and full ROM Chest Chest palpation & inspection: normal inspection of the chest Resp Effort & Inspection: normal respiratory effort Auscultation: clear to auscultation bilaterally Cardio Rate: regular rate Rhythm: regular rhythm GI Inspection: non-distended Palpation: soft, hernia indirect inguinal on the left and nontender Skin General: no rashes or lesions noted Neuro General: patient alert and patient oriented x3 Extrem General: full ROM Psych Appearance: grossly normal Mental Status: mental status grossly normal Assessment and Plan Assessment and Plan (1) Supplemental oxygen dependent: Status: Acute (2) Paroxysmal supraventricular tachycardia: Status: Chronic Comment: RFA 03/2016 (3) Left inguinal hernia: Status: Acute Plan The patient has a left inguinal hernia which is reducible. I discussed robotic assisted laparoscopic left inguinal hernia repair with mesh. I discussed the risks including but not limited to bleeding, infection, injury other organ such as the bowel, bladder, blood supply to the testicle. Patient understands all the risks and is willing to proceed. He will hold his Plavix for 5 days prior to surgery. Bran Joyce MD Pager: [facility] [address] [place] [address] [address] [place] [address] Office: I have examined the patient and the H&P has been reviewed. There are no clinical changes since date of exam.
[2023-12-08] MEDS: Lactated Ringers 1,000 ML 15 ML IV (10:37)
[2023-12-08] MEDS: Cefazolin 2 GM in 0.9% Normal Saline (100mL Bag) 100 ML IV (11:15)
[2023-12-08] MEDS: Bupivacaine Mpf 0.5% 30 ML VIAL (11:53)
--- NOTE | 2023-12-08 11:59 | PCM.OPRPT ---
Report of Operation Date of Procedure: 12/08/23 Pre-Operative Diagnosis: Left inguinal hernia Post-Operative Diagnosis: Left inguinal hernia Surgery/Procedure Performed:: Robotic assisted laparoscopic left inguinal hernia repair with mesh gas station clerk: Sreedhar Kan Type of Anesthesia: General/Regional Specimen's removed: None Estimated Blood Loss (mL): 10 Description of Procedure: Patient was brought back to the operating room and general anesthesia was induced. The abdomen was prepped and draped in the usual sterile fashion. Midline incision was made superior to the umbilicus and deepened to the fascia. The fascia was elevated and a Veress needle was placed into the abdomen and the abdomen was insufflated 15 mmHg. The needle was removed and a port was placed into the abdomen. The abdomen was inspected for injuries and there were none. The patient was placed in steep Trendelenburg position. Under direct visualization a robotic port was placed in the left lateral side abdomen as well as the right lateral abdomen. Robot was docked. The peritoneum was incised in the left lower quadrant and dissected inferiorly until the hernia sac was reduced fully. There was a large indirect hernia. The hernia defect was then covered with ProGrip mesh in the left groin. Next the peritoneum was reapproximated using a running 3 OV lock suture completely covering the mesh. The instruments were then removed and the abdomen was allowed to desufflate. The ports were removed. The incisions were injected with local anesthetic and closed with interrupted 4-0 Monocryl sutures and Steri-Strips and bandages. Scrotum was checked at the end of the case and contained both testicles. Patient was awoken and taken to PACU in stable condition and tolerated the procedure well. Grafts/Implants Used: ProGrip mesh in the left groin Admit VTE Documentation VTE Mechan Device Prophylaxis: SCD's
--- NOTE | 2023-12-08 12:04 | DCINST_ITS ---
Discharge Instructions Procedure Hernia Diet Discharge Diet: Light diet - advance as tolerated Activity Discharge Activity: May Not Drive (for 2-3 days or while taking narcotic pain meds.) and May Shower (with the bandage in place 1-2 days after surgery.) Lifting Restrictions: 20 pounds for 6 weeks. Additional Activity Instructions:: Climbing stairs is fine, walking is encouraged. Sitting in bed may be uncomfortable. Sitting up using your lateral muscles (sitting up sideways) is usually more comfortable. Do not drive, work heavy equipment of sign legal documents for 24 hours. If your hernia repair was an inguinal repair, you may have scrotal swelling, an ice pack and/or athletic support can provide more comfort. Pain medications may cause nausea, you should typically eat light foods as you take your pain medications. Pain medications may also cause constipation. If you have difficulty with this, discuss with your doctor. Alternate ibuprofen and Tylenol for pain control, oxycodone for breakthrough pain. Resume Plavix on Tuesday Dressing / Incision Call your doctor if your incision/area has: Continuous Slow Oozing, Sudden Increased Bleeding, Increased Pain/ Swelling, Increased Redness and Foul Smelling Discharge Call your doctor if you observe: Fever of 101 or Higher Suture Line Care: Avoid Pulling/Pushing and Avoid Pinching/Bending Remove Dressing in: 2 days (Remove clear bandages in 2 days, remove Steri-Strips in 7 to 10 days.) Follow Up Care Please Follow Up With: Bran Joyce MD When: Please call to schedule 2 week follow up appointment. [phone] Test Results: Test results from this visit will be discussed in further detail at your follow- up appointment, if applicable. Discharge Plan Admission Attending Provider: Bran Joyce Primary Care Provider: Carolina Sage Instructions Print Language: Macedonian Discharge Orders/Prescriptions Prescriptions: New oxycodone 5 mg Tablet 5 - 10 mg PO Q4H PRN PRN (Reason: Pain Score 4-10) 5 Days Qty: 10 0RF No Action (DME) spacer See Rx Instructions .ROUTE .MEDSUPPLY Qty: 1 0RF Rx Instructions: As directed nitroglycerin 0.4 mg tablet, sublingual 0.4 mg SUBLINGUAL Q5M PRN (Reason: Chest Pain) Qty: 25 3RF albuterol sulfate 90 mcg/actuation HFA aerosol inhaler 1 - 2 puff INHALATION Q6H PRN PRN (Reason: Sob &/Or Wheezing) Qty: 18 11RF primidone 250 mg tablet See Rx Instructions PO BID Rx Instructions: orally twice a day; 2 tablets in the AM and one tablet at HS atorvastatin 80 MG tablet 80 mg PO QHS Patient Comments: Cholesterol clopidogrel 75 MG tablet 75 mg PO DAILY Patient Comments: Blood thinner PLANNED LAST DOSE 12/02 tamsulosin 0.4 MG capsule,extended release 24hr 0.4 mg PO QHS Patient Comments: Prostate ferrous sulfate 325 MG tablet 325 mg PO DAILY Patient Comments: Iron supplement multivitamin,mc-jkyh-toptwzgw 1 TABLET tablet 1 tab PO DAILY Patient Comments: Supplement pantoprazole 40 mg tablet,delayed release (DR/EC) 40 mg PO QHS Patient Comments: Acid reflux melatonin 5 mg capsule 10 mg PO QHS folic acid 800 mcg tablet 0.8 mg PO DAILY mecobalamin (vitamin B12) 1,000 mcg tablet,chewable 1,000 mcg PO DAILY Trelegy Ellipta 100-62.5-25 mcg blister with device 1 inh inhalation DAILY Qty: 60 11RF Other Ambulatory Orders: 12 Lead EKG (Routine) Timeframe: 20231130 Location: None Selected Ordered By: Dr. Eron Maradiaga Referrals / Follow Up: Carolina Sage NP-C [Primary Care Provider] - Disposition Disposition (needs filled in before D/C Order can be placed): Home, Self Care
--- NOTE | 2023-12-08 12:08 | PCM.POST.ANE ---
Anesthesia: Postop Eval I Current Vital Signs Temperature: 98.3 F Pulse Rate: 72 Blood Pressure: 156/82 Respiratory Rate: 16 Pulse Ox: 100 Oxygen Delivery Method: Simple Mask Oxygen Flow Rate (L/min): 6 Assessment Airway patent: Yes Spontaneous unlabored respirations: Yes Mental status: Awake and Calm nausea: No Vomiting: No Anesthesia Complication: No Fluid Hydration Crystalloid volume administer (ml): 600 Total IV fluid infused: 600 Progress Note Anesthesia document: Postop Eval 1 completed: Yes
--- NOTE | 2023-12-08 12:24 | POSTOPAN2_ITS ---
Anesthesia Postop Eval I Sum Postop Eval Completion status Anesthesia document: Postop Eval 1 completed: Yes Anesthesia Postop Eval I Summary Anesthesia Postop Eval I Summary: Anesthesia Postop Eval I: Assessment Summary Airway patent Yes 12/08/23 12:09 PLATE AND FRAME FILTER OPERATOR.[email or web address] Spontaneous unlabored Yes 12/08/23 12:09 PLATE AND FRAME FILTER OPERATOR.JUAN A respirations Mental status Awake,Calm 12/08/23 12:09 PLATE AND FRAME FILTER OPERATOR.JUAN A nausea No 12/08/23 12:09 PLATE AND FRAME FILTER OPERATOR.JUAN A Vomiting No 12/08/23 12:09 PLATE AND FRAME FILTER OPERATORKEDAR Anesthesia Postop Eval I: Fluid Summary Crystalloid volume administer 600 12/08/23 12:09 PLATE AND FRAME FILTER OPERATOR.JUAN A (ml) Colloids volume administered ( ml) Blood Product volume administered (ml) Total IV fluid infused 600 12/08/23 12:09 SAMMY Anesthesia Postop Eval I: Summary Notes Anesthesia Complication No 12/08/23 12:09 SAMMY Anesthesia Complication Comment: Post-operative progress note Anesthesia: Postop Eval II Evaluation Mental status: Awake Pain Level: 0 nausea: No Vomiting: No
--- NOTE | 2023-12-08 12:24 | PCM.POSTANE2 ---
Anesthesia Postop Eval I Sum Postop Eval Completion status Anesthesia document: Postop Eval 1 completed: Yes Anesthesia Postop Eval I Summary Anesthesia Postop Eval I Summary: Anesthesia Postop Eval I: Assessment Summary Airway patent Yes 12/08/23 12:09 ORE DIGGER.[email or web address] Spontaneous unlabored Yes 12/08/23 12:09 ORE DIGGER.JUAN A respirations Mental status Awake,Calm 12/08/23 12:09 ORE DIGGER.JUAN A nausea No 12/08/23 12:09 ORE DIGGER.JUAN A Vomiting No 12/08/23 12:09 ORE DIGGERKEDAR Anesthesia Postop Eval I: Fluid Summary Crystalloid volume administer 600 12/08/23 12:09 ORE DIGGER.JUAN A (ml) Colloids volume administered ( ml) Blood Product volume administered (ml) Total IV fluid infused 600 12/08/23 12:09 SAMMY Anesthesia Postop Eval I: Summary Notes Anesthesia Complication No 12/08/23 12:09 SAMMY Anesthesia Complication Comment: Post-operative progress note Anesthesia: Postop Eval II Evaluation Mental status: Awake Pain Level: 0 nausea: No Vomiting: No
[2023-12-08] MEDS: Acetaminophen 325 MG Tablet 650 MG PO (14:05)
[2023-12-08] MEDS: Ibuprofen 400 MG Tablet PO (14:06)
== END 2023-12-08 15:23 | disposition home or self-care (01) ==
LOC: SDC 09:47 → AC 09:57
PROVIDERS: Anesthesiology; PCP Nurse Practitioner Family; Referring Provider Surgery; Visit Provider Surgery
PROC: 0YQ64ZZ Repair Left Inguinal Region, Percutaneous Endoscopic Approach (ICD-10-PCS; CPT 49650; principal; 2023-12-08 11:05)
DX: K40.90 Unilateral inguinal hernia, without obstruction or gangrene, not specified as recurrent (principal); J44.9 Chronic obstructive pulmonary disease, unspecified; I10 Essential (primary) hypertension; I25.10 Atherosclerotic heart disease of native coronary artery without angina pectoris; I25.5 Ischemic cardiomyopathy; E78.5 Hyperlipidemia, unspecified; G47.33 Obstructive sleep apnea (adult) (pediatric); F17.200 Nicotine dependence, unspecified, uncomplicated; I25.2 Old myocardial infarction; Z79.51 Long term (current) use of inhaled steroids; Z79.899 Other long term (current) drug therapy; Z95.5 Presence of coronary angioplasty implant and graft; Z86.16 Personal history of COVID-19
CPT/HCPCS: 49650; S2900; 00840; 36415; 80048; 85027; 93005; 94640; J7120; J2405

== ENCOUNTER → 2024-06-26 | Outpatient (CLI) | payer MEDICARE, OTHER, SELFPAY | END | disposition home or self-care (01) | LOC: SL 13:18 | PROVIDERS: PCP Nurse Practitioner Family; Visit Provider Nurse Practitioner Acute Care | DX: Z46.89 Encounter for fitting and adjustment of other specified devices (principal) ==

== ENCOUNTER → 2024-07-04 | Outpatient (CLI) | payer MEDICARE, OTHER, SELFPAY ==
[2024-07-04 14:40] LABS: Absolute Lymphocyte Count 0.98 X10^3/uL (0.83-4.51); Absolute Neutrophil Count 1.8 X10^3/uL (2.0-7.7); Basophil# 0.01 X10^3/uL; Basophil% 0.3 % (0-1); Eosinophil# 0.06 X10^3/uL; Hemoglobin 14.8 g/dL (13.0-16.5); Lymphocyte # 0.98 X10^3/ul (0.83-4.51); Lymphocyte % 32.2 % (19-41); Mean Corp Hgb Conc 32.9 g/dL (32-36); Mean Corpuscular Hgb 33.9 pg (27.0-32.0); Mean Corpuscular Volume 103.2 fL (80-94); Mean Platelet Vol. 9.7 fl (6.2-12.0); Monocyte# 0.22 X10^3/uL; Monocyte% 7.2 % (0-10); NRBC Flagged by Analyzer 0 % (0-5); Neutrophil # 1.76 X10^3/uL (2.7-7.7); Platelet Count 122 K/mm3 (150-450); RBC Distribution Width CV 11.9 % (11.6-14.6); RBC Distribution Width SD 45.1 fl (35.1-43.9); Red Blood Count 4.36 M/mm3 (4.6-6.2)
[2024-07-04 16:05] LABS: ALB/GLOB Ratio 1.5 RATIO (0.9-2.4); AST(SGOT) 29 U/L (<=37); Alanine Aminotransfer ALT/SGPT 24 U/L (<=46); Albumin, Serum 3.9 g/dL (3.4-4.8); Alkaline Phosphatase 83 U/L (40-129); Anion Gap 7 (5-15); BUN 13 mg/dL (4-19); BUN/Creat Ratio 18.1 RATIO (10-20); Calcium,Total 8.7 mg/dL (7.6-11.0); Chloride 98 mmol/L (98-108); Cholesterol 147 mg/dL (<=200); Creatinine, Serum 0.72 mg/dL (0.70-1.20); EST Glomerular Filtration Rate 90 (>60); Globulin 2.5 g/dL (2.2-4.2); Glucose 183 mg/dL (70-99); High Density Lipoprotein 63 mg/dL; Low Density Lipoprotein Calc. 58 mg/dL; PSA,Total - Annual Screen 0.45 ng/mL (0.02-4.00); Potassium 4.4 mmol/L (3.3-5.1); Protein, Total 6.4 g/dL (5.9-8.4); Sodium Level 141 mmol/L (133-145); Total Bilirubin 0.19 mg/dL (0.00-1.30); Triglycerides 132 mg/dL; Very Low Density Lipoprotein 26 mg/dL (5-40); cholesterol:hdl ratio screen 2.33
[2024-07-06 13:30] LABS: Hemoglobin A1c 6.6 % (<=5.6)
== END | disposition home or self-care (01) ==
LOC: LAB 14:23
PROVIDERS: PCP Nurse Practitioner Family; Referring Provider Nurse Practitioner Family; Visit Provider Nurse Practitioner Family
DX: R73.01 Impaired fasting glucose (principal); I10 Essential (primary) hypertension; E78.5 Hyperlipidemia, unspecified; Z12.5 Encounter for screening for malignant neoplasm of prostate
CPT/HCPCS: 36415; 80053; 80061; 83036; 84153; 85025; G0103